=== PATIENT | male | born 1955 | race African-American/Black ===

== ENCOUNTER 2016-04-24 01:02 | Emergency (ER) | payer SELFPAY ==
[2016-04-24 01:25] LABS: EOSINOPHILS % (AUTO) 1.7 % (1.0-6.0); HEMATOCRIT 44.2 % (41-53); HEMOGLOBIN 14.2 g/dL (13.5-17.5); LYMPHOCYTES # (AUTO) 3.2 K/uL (1.0-4.8); LYMPHOCYTES % (AUTO) 34.7 % (22.0-44.0); MEAN CORPUSCULAR HGB CONC 32.2 G/dL (31.0-37.0); MEAN CORPUSCULAR VOLUME 90 fL (80-100); MONOCYTES # (AUTO) 0.5 K/uL (0.1-1.0); MONOCYTES % (AUTO) 5.1 % (2.0-9.0); NEUTROPHILS # (AUTO) 5.4 K/uL (1.8-7.7); NEUTROPHILS % (AUTO) 58.5 % (40.0-70.0); PLATELET COUNT (AUTO) 266 K/uL (150-450); RED BLOOD CELL COUNT(AUTO) 4.92 MIL/uL (4.50-5.90); RED CELL DISTRIBUTION WIDTH 14.2 % (11.5-14.5); WHITE BLOOD COUNT (AUTO) 9.2 K/uL (4.5-11.0)
[2016-04-24 01:34] LABS: ANION GAP 10 mmol/L (8-16); CALCIUM, TOTAL 9.3 mg/dL (8.8-10.5); CARBON DIOXIDE 28 mmol/L (22-29); CHLORIDE 102 mmol/L (98-107); CREATININE 1.31 mg/dL (0.60-1.30); GLOMERULAR FILTR. RATE CALC > 60 mL/min (>60); POTASSIUM 4.2 mmol/L (3.5-5.1); SODIUM SERUM 140 mmol/L (136-145); UREA NITROGEN, BLOOD 23 mg/dL (7-18)
[2016-04-24 01:39] LABS: ALANINE AMINOTRANSFERASE 27 U/L (12-78); ALBUMIN 4.2 g/dL (3.4-5.0); ASPARTATE AMINOTRANSFERASE 29 U/L (15-37); BILIRUBIN,TOTAL 0.2 mg/dL (0.1-1.0); TOTAL PROTEIN, SERUM 8.7 g/dL (6.4-8.2)
[2016-04-24 01:49] VITALS: BP 153/92
== END 2016-04-24 02:55 | disposition home or self-care (01) ==
LOC: EMS 01:05
DX: F20.9 Schizophrenia, unspecified (principal); I10 Essential (primary) hypertension; F17.210 Nicotine dependence, cigarettes, uncomplicated
CPT/HCPCS: 36415; 80053; 80307; 85025; 99285; G0480

== ENCOUNTER 2017-09-01 22:32 | Inpatient (IN) | payer MEDICARE, MEDICAID ==
[~2017-09-01] VITALS: Ht 175.3 cm; Wt 72.1 kg
[2017-09-01 22:39] VITALS: BP 125/60
[2017-09-01] MEDS ORDERED: BENZ1TAB10 PO (23:05)
[2017-09-01] MEDS ORDERED: QUET300T2 PO (23:05)
[2017-09-01] MEDS ORDERED: METO25XL PO (23:05)
[2017-09-01] MEDS ORDERED: HALO5TAB2 PO ×2 (23:05)
[2017-09-01] MEDS ORDERED: TAMS0.4C32 PO (23:05)
[2017-09-01] MEDS: BENZTROPINE MESYLATE 1 MG TABLET PO SCH (23:45)
[2017-09-01] MEDS: HALOPERIDOL 5 MG TABLET PO SCH (23:45)
[2017-09-01] MEDS: QUEtiapine FUMARATE 300 MG TABLET PO SCH (23:45)
[2017-09-01 23:56] LABS: BASOPHILS % (AUTO) 0.7 % (0.0-2.0); EOSINOPHILS % (AUTO) 2.3 % (1.0-6.0); HEMATOCRIT 37.2 % (41-53); HEMOGLOBIN 12.6 g/dL (13.5-17.5); LYMPHOCYTES # (AUTO) 3.9 K/uL (1.0-4.8); LYMPHOCYTES % (AUTO) 49.2 % (22.0-44.0); MEAN CORPUSCULAR HEMOGLOBIN 28.7 pg (26.0-34.0); MEAN CORPUSCULAR HGB CONC 33.9 G/dL (31.0-37.0); MEAN CORPUSCULAR VOLUME 85 fL (80-100); MONOCYTES # (AUTO) 0.7 K/uL (0.1-1.0); MONOCYTES % (AUTO) 8.5 % (2.0-9.0); NEUTROPHILS # (AUTO) 3.1 K/uL (1.8-7.7); NEUTROPHILS % (AUTO) 39.3 % (40.0-70.0); PLATELET COUNT (AUTO) 207 K/uL (150-450); RED BLOOD CELL COUNT(AUTO) 4.39 MIL/uL (4.50-5.90); RED CELL DISTRIBUTION WIDTH 15.2 % (11.5-14.5)
[2017-09-02 00:09] LABS: ANION GAP 6 mmol/L (8-16); CALCIUM, TOTAL 8.5 mg/dL (8.8-10.5); CARBON DIOXIDE 29 mmol/L (22-29); CHLORIDE 104 mmol/L (98-107); CREATININE 1.33 mg/dL (0.60-1.30); GLOMERULAR FILTR. RATE CALC > 60 mL/min (>60); GLUCOSE,RANDOM 94 mg/dL (70-110); POTASSIUM 3.8 mmol/L (3.5-5.1); SODIUM SERUM 139 mmol/L (136-145); UREA NITROGEN, BLOOD 10 mg/dL (7-18)
[2017-09-02 00:13] LABS: PHOSPHORUS 3.3 mg/dL (2.5-4.9)
[2017-09-02 02:10] LABS: APPEARANCE,URINE CLEAR (CLEAR); BILIRUBIN,URINE NEGATIVE (NEGATIVE); GLUCOSE, URINE (UA) NEGATIVE (NEGATIVE); KETONES,URINE NEGATIVE (NEGATIVE); LEUKOCYTE ESTERASE ,URINE SMALL (NEGATIVE); NITRATE,URINE NEGATIVE (NEGATIVE); OCCULT BLOOD,URINE NEGATIVE (NEGATIVE); PH,URINE 6.5 (5.0-8.0); PROTEIN,URINE NEGATIVE (NEGATIVE); UROBILINOGEN,URINE 0.2 mg/dL (<=1.0)
[2017-09-02 02:28] LABS: RBC,URINE 0-2 /HPF (0-2)
[2017-09-02 02:29] LABS: BACTERIA,URINE Few /HPF (None Seen); SQUAMOUS EPITHELIAL CELL,UR Few /LPF (None Seen)
[2017-09-02 03:30] VITALS: BP 118/70
[2017-09-02 07:32] VITALS: BP 124/72
[2017-09-02] MEDS: HALOPERIDOL 5 MG TABLET PO SCH ×2 (08:22→20:19)
[2017-09-02] MEDS: BENZTROPINE MESYLATE 1 MG TABLET PO SCH ×2 (08:22→20:19)
[2017-09-02] MEDS: METOPROLOL SUCCINATE 25 MG ER TABLET PO SCH (08:23)
[2017-09-02] MEDS: TAMSULOSIN HCL 0.4 MG CAPSULE PO SCH (08:23)
[2017-09-02] MEDS ORDERED: 0.9% SODIUM CHLORIDE 10 ML SYRINGE IVP PRN (08:45)
[2017-09-02] MEDS ORDERED: ZOLPIDEM TARTRATE 5 MG TABLET PO PRN (08:45)
[2017-09-02] MEDS ORDERED: ONDANSETRON HCL 4 MG/2 ML VIAL IVP PRN (08:45)
[2017-09-02] MEDS ORDERED: ACETAMINOPHEN 325 MG TABLET PO PRN (08:45)
[2017-09-02] MEDS ORDERED: HYDROCODONE/ACETAMINOPHEN 5-325 MG TABLET PO PRN (08:45)
[2017-09-02] MEDS: MVI, ADULT NO.1 WITH VIT K 10 ML in SODIUM CHLORIDE 0.9% 1,000 ML IV SCH ×4 (09:39→23:35)
[2017-09-02] MEDS: PANTOPRAZOLE SODIUM 40 MG/VIAL IVP SCH (09:40)
[2017-09-02] MEDS: HEPARIN SODIUM,PORCINE 5,000 UNITS/ML VIAL SQ SCH ×3 (09:40→23:35)
[2017-09-02 11:22] VITALS: BP 146/78
[2017-09-02 15:37] VITALS: BP 132/75
[2017-09-02] MEDS: CefTRIAXone SODIUM 1 GM in DEXTROSE 5%-WATER 10 ML IV SCH (17:13)
[2017-09-02] MEDS: QUEtiapine FUMARATE 300 MG TABLET PO SCH (20:19)
[2017-09-02 20:24] VITALS: BP 93/65
[2017-09-02 23:41] VITALS: BP 143/71
[2017-09-03 03:47] VITALS: BP 108/57
[2017-09-03 07:58] VITALS: BP 134/78
[2017-09-03] MEDS: HALOPERIDOL 5 MG TABLET PO SCH (09:23)
[2017-09-03] MEDS: TAMSULOSIN HCL 0.4 MG CAPSULE PO SCH (09:24)
[2017-09-03] MEDS: PANTOPRAZOLE SODIUM 40 MG/VIAL IVP SCH (09:24)
[2017-09-03] MEDS: HEPARIN SODIUM,PORCINE 5,000 UNITS/ML VIAL SQ SCH (09:24)
[2017-09-03] MEDS: METOPROLOL SUCCINATE 25 MG ER TABLET PO SCH (09:25)
[2017-09-03] MEDS: BENZTROPINE MESYLATE 1 MG TABLET PO SCH (09:25)
[2017-09-03 11:20] VITALS: BP 114/60
[2017-09-03] MEDS ORDERED: CEFX1I IV (12:18)
[2017-09-03] MEDS: CefTRIAXone SODIUM 1 GM in DEXTROSE 5%-WATER 10 ML IV SCH (12:27)
== END 2017-09-03 15:00 | disposition home or self-care (01) | DRG 690 ==
LOC: 4E 22:35
PROVIDERS: ADMIT Internal Medicine; ATTEND Internal Medicine
DX: N39.0 Urinary tract infection, site not specified (principal); I10 Essential (primary) hypertension; J44.9 Chronic obstructive pulmonary disease, unspecified; M19.90 Unspecified osteoarthritis, unspecified site; E86.0 Dehydration; F20.9 Schizophrenia, unspecified; F17.210 Nicotine dependence, cigarettes, uncomplicated; N40.0 Benign prostatic hyperplasia without lower urinary tract symptoms; Z83.3 Family history of diabetes mellitus; Z82.49 Family history of ischemic heart disease and other diseases of the circulatory system
CPT/HCPCS: 83735; 84100; 87086; C9113; J0696; J1644; J3490; J7030; J7060

== ENCOUNTER 2017-09-03 16:15 | Emergency (ER) | payer MEDICARE, MEDICAID ==
[~2017-09-03] VITALS: Ht 175.3 cm; Wt 79.5 kg
[~2017-09-03 16:15] MED LIST: BENZ1TAB10 PO; CEFX1I IV; HALO5TAB2 PO; METO25XL PO; QUET300T2 PO; TAMS0.4C32 PO
[2017-09-03 18:16] VITALS: BP 131/81
== END 2017-09-03 18:37 | disposition home or self-care (01) ==
LOC: EMS 16:16
DX: I10 Essential (primary) hypertension (principal); J44.9 Chronic obstructive pulmonary disease, unspecified; F20.9 Schizophrenia, unspecified; F17.210 Nicotine dependence, cigarettes, uncomplicated
CPT/HCPCS: 99282; 99406